=== PATIENT | female | born 1965 | race Caucasian/White ===

== ENCOUNTER 2017-02-24 14:09 | Emergency (ER) | payer SELFPAY ==
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
[2017-02-24] MEDS ORDERED: SODIUM CHLORIDE 0.9% 1000ML 1,000 ML IVS ONE (14:48)
[2017-02-24 14:51] VITALS: TEMP 98.8
[2017-02-24 15:34] VITALS: O2SAT 97
[2017-02-24] MEDS ORDERED: KETOROLAC TROMETHAMINE INJ 30 MG/ML VIAL IV ONE (16:37)
[2017-02-24] MEDS ORDERED: FLUCONAZOLE 150 MG TAB PO ONE (16:39)
--- NOTE | 2017-02-24 16:40 | US ---
EXAM DESCRIPTION: Pelvis Transvaginal CLINICAL HISTORY: pelvic pain and metromenorrhagia COMPARISON: None. TECHNIQUE: Real-time sonographic images of the pelvis are obtained transvaginally. FINDINGS: The uterus measures 9.2 x 4.7 x 4.8 cm. The endometrium is mostly hyperechoic measuring 9 mm in thickness. 2 hypoechoic heterogeneous uterine masses are demonstrated, measuring up to 3.3 cm. These are compatible with intramural fibroids. The right ovary measures 2.0 x 1.5 x 1.9 cm. It demonstrates normal echogenicity. The left ovary measures 1.9 x 1.7 x 1.7 cm. It demonstrates normal echogenicity. Both ovaries show normal vascular flow. There is no pelvic free fluid. IMPRESSION: 1. Endometrial thickness is 9 mm. If the patient is premenopausal, this may be physiologic. Endometrial thickening may also be secondary to hyperplasia, polyps, or carcinoma in the appropriate clinical setting. [employer] follow-up recommended. 2. Uterine fibroids. Electronically signed by: Luan Morse MD 02/24/2017 4:39 PM CDT
[2017-02-24 17:31] VITALS: BP 156/64
== END 2017-02-24 17:25 | disposition home or self-care (01) ==
LOC: ER 14:09
DX: B37.3 Candidiasis of vulva and vagina (principal); N92.6 Irregular menstruation, unspecified; E11.65 Type 2 diabetes mellitus with hyperglycemia
CPT/HCPCS: 36415; 76830; 80053; 81001; 85025; 87210; J1885; J7030